=== PATIENT | male | born 1960 | race Caucasian/White ===

== ENCOUNTER 2024-08-20 16:43 | Emergency (ER) | payer MEDICARE ==
[~2024-08-20] VITALS: Ht 182.9 cm; Wt 73.0 kg
[2024-08-20 16:48] VITALS: TEMP 98.1; O2SAT 97
[2024-08-20 18:59] VITALS: BP 151/94; PULSE 74; RESP 16; O2SAT 96
== END 2024-08-20 19:24 | disposition home or self-care (01) ==
LOC: ER 16:43
DX: R53.1 Weakness (principal); E11.9 Type 2 diabetes mellitus without complications; I10 Essential (primary) hypertension; R56.9 Unspecified convulsions; W01.198A Fall on same level from slipping, tripping and stumbling with subsequent striking against other object, initial encounter; Y93.89 Activity, other specified; Y92.89 Other specified places as the place of occurrence of the external cause; Y99.8 Other external cause status; Z88.8 Allergy status to other drugs, medicaments and biological substances; Z91.041 Radiographic dye allergy status; Z59.00 Homelessness unspecified
CPT/HCPCS: 99284

== ENCOUNTER 2024-08-21 11:21 | Emergency (ER) | payer MEDICARE ==
[~2024-08-21] VITALS: Ht 180.3 cm; Wt 121.0 kg
[2024-08-21 11:45] VITALS: BP 147/99; TEMP 98.4; O2SAT 97
[2024-08-21 11:46] VITALS: PULSE 86; RESP 18; O2SAT 99
== END 2024-08-21 16:46 | disposition home or self-care (01) ==
LOC: ER 11:21
DX: Z00.00 Encounter for general adult medical examination without abnormal findings (principal); Z59.00 Homelessness unspecified; E11.9 Type 2 diabetes mellitus without complications; I10 Essential (primary) hypertension; Z88.6 Allergy status to analgesic agent; Z88.8 Allergy status to other drugs, medicaments and biological substances; Z91.041 Radiographic dye allergy status
CPT/HCPCS: 99281